=== PATIENT | female | born 1975 | race Caucasian/White ===

== ENCOUNTER → 2017-07-10 | Outpatient (CLI) | payer OTHER | LOC: M.RAD 06-27 07:30 | DX: Z12.31 Encounter for screening mammogram for malignant neoplasm of breast (principal) ==

== ENCOUNTER → 2018-01-08 | Outpatient (CLI) | payer OTHER ==
[2018-01-08 07:41] LABS: HEMATOCRIT 38.8 % (37.0-47.0); HEMOGLOBIN 13.1 gm/dL (12.0-15.0); MCH 31.6 pg (26.0-34.0); MCHC 33.9 g/dL (28.0-37.0); MCV 93.3 fL (80.0-100.0); MPV 8.6 fl. (7.2-11.1); RBC 4.16 mil/uL (4.20-5.00); RDW-CV 13.4 % (10.5-14.5); WBC 5.6 thou/uL (4.0-11.0)
[2018-01-08 07:54] LABS: ALBUMIN 3.6 g/dL (3.4-5.0); ALKALINE PHOSPHATASE 56 U/L (46-116); ANION GAP 8 mmol/L (7-16); BUN 9 mg/dL (7-18); CALCIUM 8.8 mg/dL (8.5-10.1); CHLORIDE 105 mmol/L (98-107); CHOLESTEROL 214 mg/dL (<200); CO2 26 mmol/L (21-32); CREATININE 0.8 mg/dL (0.6-1.3); GLUCOSE 95 mg/dL (70-99); HDL CHOLESTEROL 40 mg/dL (>40); LDL CHOLESTEROL 142 mg/dL (<100); SGOT 23 U/L (15-37); SGPT 35 U/L (30-65); SODIUM 139 mmol/L (136-145); TC:HDL 5.4 Ratio (Not establshd); TOTAL BILIRUBIN 0.6 mg/dL (<0.1-1.0); TOTAL PROTEIN 7.9 g/dL (6.4-8.2); TRIGLYCERIDE 162 mg/dL (<150); VLDL 32 mg/dL (<40)
[2018-01-08 07:55] LABS: SERUM ASSESSMENT Clear
[2018-01-09 02:06] LABS: GLYCOHEMOGLOBIN (HGB A1C) 4.9 % (4.8-5.6)
== END ==
LOC: M.LAB 07:22
DX: Z13.1 Encounter for screening for diabetes mellitus (principal); Z13.21 Encounter for screening for nutritional disorder; Z13.220 Encounter for screening for lipoid disorders; K21.9 Gastro-esophageal reflux disease without esophagitis; E66.01 Morbid (severe) obesity due to excess calories

== ENCOUNTER 2018-07-09 08:39 | Emergency (ER) | payer OTHER ==
[~2018-07-09] VITALS: Ht 170.2 cm; Wt 112.5 kg
[2018-07-09] MEDS ORDERED: MAXALT10 MG PO (08:52)
[2018-07-09] MEDS ORDERED: AMITRIPTYLINE H10 M1 PO (08:52)
[2018-07-09] MEDS ORDERED: LEXAPRO20 MG PO (08:53)
[2018-07-09] MEDS ORDERED: PREVACID15 MG PO (08:53)
[2018-07-09] MEDS ORDERED: SYNTHROID100 MC1 PO (08:54)
[2018-07-09] MEDS ORDERED: LODINE400 M1 PO (08:54)
[2018-07-09 10:05] VITALS: BP 144/92
== END 2018-07-09 10:06 | disposition home or self-care (01) ==
LOC: M.ERS 08:39
DX: R51 Headache (principal); E03.9 Hypothyroidism, unspecified; F32.9 Major depressive disorder, single episode, unspecified; K21.9 Gastro-esophageal reflux disease without esophagitis; M19.90 Unspecified osteoarthritis, unspecified site; Z88.8 Allergy status to other drugs, medicaments and biological substances

== ENCOUNTER → 2018-07-10 | Outpatient (CLI) | payer OTHER ==
[~2018-07-10] MED LIST: AMITRIPTYLINE H10 M1 PO; LEXAPRO20 MG PO; LODINE400 M1 PO; MAXALT10 MG PO; PREVACID15 MG PO; SYNTHROID100 MC1 PO
== END ==
LOC: M.RAD 12:43
DX: Z12.31 Encounter for screening mammogram for malignant neoplasm of breast (principal)

== ENCOUNTER → 2019-06-03 | Outpatient (CLI) | payer OTHER | LOC: M.RAD 11:51 | DX: J01.00 Acute maxillary sinusitis, unspecified (principal) ==

== ENCOUNTER → 2019-07-05 | Outpatient (CLI) | payer OTHER | LOC: M.RAD 10:00 | DX: Z12.31 Encounter for screening mammogram for malignant neoplasm of breast (principal) ==

== ENCOUNTER → 2020-07-05 | Outpatient (CLI) | payer OTHER | LOC: M.RAD 08:10 | PROVIDERS: ATTEND Internal Medicine | DX: Z12.31 Encounter for screening mammogram for malignant neoplasm of breast (principal); N64.89 Other specified disorders of breast ==

== ENCOUNTER → 2020-08-17 | Outpatient (CLI) | payer OTHER ==
[~2020-08-17] MED LIST changes: +ETODOLAC500 MG PO; +LEVO-T25 MCG PO; +XYZAL5 MG PO
== END ==
LOC: M.LAB 13:25
PROVIDERS: ATTEND Orthopaedic Surgery
DX: Z01.812 Encounter for preprocedural laboratory examination (principal); Z20.822 Contact with and (suspected) exposure to COVID-19; S46.011A Strain of muscle(s) and tendon(s) of the rotator cuff of right shoulder, initial encounter; M75.41 Impingement syndrome of right shoulder; X58.XXXA Exposure to other specified factors, initial encounter; Y93.89 Activity, other specified; Y92.89 Other specified places as the place of occurrence of the external cause; Y99.8 Other external cause status

== ENCOUNTER → 2020-08-23 | Day surgery (SDC) | payer OTHER ==
--- NOTE | ~2020-08-23 | OP ---
[address] [address] OPERATIVE REPORT Name: XOCHILT GASTON Room: [facility]#: [id number] Admission: 08/23/20 Attend Phys: Zeke Walker II Discharge: Date of : 79 Report #: [id number] THIS REPORT FOR: cc: Areli Archuleta MD, Lin W. MD ~ Zeke Walker II, DO DATE OF SERVICE: 08/23/2020 PREOPERATIVE DIAGNOSIS: Right shoulder rotator cuff tear. POSTOPERATIVE DIAGNOSES: 1. Right shoulder rotator cuff tear. 2. Lateral clavicle osteoarthritis. 3. Bone and cartilage debris with labral tears and biceps tendon tear, glenohumeral joint. PROCEDURES PERFORMED: 1. Right shoulder arthroscopic surgery with rotator cuff repair. 2. Lateral clavicle excision. 3. Extensive debridement of labral tears, biceps tear and glenohumeral joint bone and cartilage debris. SURGEON: Zeke Walker II, DO NEON SIGN SERVICER: RAPHAEL Cui ANESTHESIA: Per operative record. ESTIMATED BLOOD LOSS: Minimal. ANTIBIOTICS: Per operative record. DRAINS: None. COMPLICATIONS: None. CONDITION OF THE PATIENT: Stable to recovery room. DESCRIPTION OF PROCEDURE: The patient was taken to the operative suite and placed supine on the operating table, given appropriate anesthesia. The patient's affected shoulder was sterilely prepped and draped in a modified beach chair position and all bony prominences were well padded. Surgery began by posterior portal incision. The arthroscope was advanced in the joint. There was shown to be fraying at the biceps tendon along its proximal insertion. This was debrided utilizing a shaver throughout the anterior [place] [address] OPERATIVE REPORT Name: XOCHILT GASTON Room: [facility].#: [id number] Admission: 08/23/20 Attend Phys: Zeke Walker II Discharge: Date of : 79 Report #: [id number] of the biceps tendon. There was also fraying and tears to the labrum throughout the superior, inferior as well as anterior and posterior portions. The arthroscopic shaver was then utilized to excise the anterior superior as well as a posterior and inferior aspects of the labrum to resect the tears. There was shown to be bone and cartilage debris within the glenohumeral joint. Shaver was utilized to remove this bone and cartilage debris throughout the undersurface as well as the pouch of the inferior humerus. There was shown to be rotator cuff tear noted to the lateral margin of the rotator cuff. This was debrided utilizing a shaver throughout the undersurface of the rotator cuff down to fresh tissue. The arthroscope was advanced in the subacromial space. There was shown to be significant impingement and a subacromial bursectomy was performed utilizing a shaver. There was shown to be significant osteoarthritis at the AC joint with narrowing at this region as well as the inferior spur, which was impinging on the tissue. Establishing an anterior portal, the arthroscopic shaver and bur were utilized to resect the distal centimeter of lateral clavicle to excise the significantly arthritic part with a lateral clavicle excision being performed. The rotator cuff tear was then noted on the superior margin, debrided with a shaver. A medium arthroscopic Bioinductive implant was then used with JEAN tendon anchor secured medially and PEEK bone anchor secured laterally to repair the rotator cuff. This was probed and shown to be intact with excellent fit of rotator cuff and full range of motion of the shoulder without evidence of re-tear. Final images were taken. Shoulder was drained of arthroscopic fluid, closed with 4-0 nylon in simple fashion. Dermabond, sterile dressing and sling were applied. The patient transported to recovery room in stable condition. Counts were correct throughout the procedure. By: 29 [id number] Walker II, DO /nt
== END | disposition home or self-care (01) ==
LOC: M.SUR 09:15
PROVIDERS: ATTEND Orthopaedic Surgery
DX: S46.011A Strain of muscle(s) and tendon(s) of the rotator cuff of right shoulder, initial encounter (principal); M19.011 Primary osteoarthritis, right shoulder; M25.511 Pain in right shoulder; M24.111 Other articular cartilage disorders, right shoulder; M25.521 Pain in right elbow; M75.41 Impingement syndrome of right shoulder; M19.90 Unspecified osteoarthritis, unspecified site; F32.9 Major depressive disorder, single episode, unspecified; F41.9 Anxiety disorder, unspecified; E07.9 Disorder of thyroid, unspecified; Z98.890 Other specified postprocedural states; Z79.899 Other long term (current) drug therapy; X58.XXXA Exposure to other specified factors, initial encounter; Y93.89 Activity, other specified; Y92.89 Other specified places as the place of occurrence of the external cause; Y99.8 Other external cause status

== ENCOUNTER → 2021-07-04 | Outpatient (CLI) | payer OTHER | LOC: M.RAD 09:00 | PROVIDERS: ATTEND Internal Medicine | DX: Z12.31 Encounter for screening mammogram for malignant neoplasm of breast (principal) ==

== ENCOUNTER 2021-08-09 12:54 | Emergency (ER) | payer OTHER ==
[~2021-08-09] VITALS: Ht 170.2 cm; Wt 115.7 kg
[2021-08-09] MEDS ORDERED: APAP W/CODEINE1 TA2 PO (14:28)
[2021-08-09 14:33] VITALS: BP 155/108
== END 2021-08-09 14:33 | disposition home or self-care (01) ==
LOC: M.ERS 12:54
DX: M25.572 Pain in left ankle and joints of left foot (principal); E03.9 Hypothyroidism, unspecified; G43.909 Migraine, unspecified, not intractable, without status migrainosus; F32.9 Major depressive disorder, single episode, unspecified; K21.9 Gastro-esophageal reflux disease without esophagitis; M19.90 Unspecified osteoarthritis, unspecified site; Z79.891 Long term (current) use of opiate analgesic; Z79.899 Other long term (current) drug therapy; Z88.8 Allergy status to other drugs, medicaments and biological substances; W01.0XXA Fall on same level from slipping, tripping and stumbling without subsequent striking against object, initial encounter; Y93.89 Activity, other specified; Y92.89 Other specified places as the place of occurrence of the external cause; Y99.8 Other external cause status